=== PATIENT | female | born 1970 | race African-American/Black ===

== ENCOUNTER 2019-04-05 09:46 | Day surgery (SDC) | payer OTHER ==
[2019-04-05] MEDS ORDERED: PROPOFOL 40 ML (11:25)
[2019-04-05] MEDS ORDERED: LIDOCAINE 100 MG SYRINGE (11:25)
== END 2019-04-05 12:42 | disposition home or self-care (01) ==
LOC: GIL 09:46
DX: Z12.11 Encounter for screening for malignant neoplasm of colon (principal); K64.8 Other hemorrhoids; I10 Essential (primary) hypertension
CPT/HCPCS: 45378